=== PATIENT | male | born 1975 | race Caucasian/White ===

== ENCOUNTER 2016-06-14 21:29 | Emergency (ER) | payer MEDICAID ==
[~2016-06-14] VITALS: Ht 182.9 cm; Wt 78.0 kg
[2016-06-14 22:06] VITALS: Ht 182.9 cm; Wt 78.0 kg
[2016-06-15 00:43] LABS: ADD SCAN DIFF NO
[2016-06-15 00:48] LABS: BASOPHILS % 0.4 % (0.0-2.0); EOSINOPHILS # 0.1 10^3/ul (0.0-0.5); EOSINOPHILS % 1.6 % (0.0-7.0); HEMATOCRIT 33.2 % (42.0-52.0); HEMOGLOBIN 9.9 g/dl (14.0-18.0); LYMPHOCYTES # 1.4 10^3/ul (0.8-2.9); LYMPHOCYTES % 25.3 % (15.0-51.0); MEAN CORPUSCULAR HEMOGLOBIN 21.6 pg (29.0-33.0); MEAN CORPUSCULAR HGB CONC 29.8 g/dl (32.0-37.0); MEAN CORPUSCULAR VOLUME 72.5 fl (82.0-101.0); MEAN PLATELET VOLUME 8.8 fl (7.4-10.4); MONOCYTE # 0.3 10^3/ul (0.3-0.9); MONOCYTES % 5.7 % (0.0-11.0); NEUTROPHIL # 3.8 10^3/ul (1.6-7.5); NEUTROPHILS % 66.8 % (39.0-77.0); PLATELET COUNT 365 10^3/UL (140-415); RED BLOOD COUNT 4.58 10^6/ul (4.70-6.10); RED CELL DISTRIBUTION WIDTH 18.2 % (11.5-14.5); WHITE BLOOD COUNT 5.7 10^3/ul (4.8-10.8)
[2016-06-15 00:59] LABS: ADD UMIC NO; URINE BILIRUBIN (Dip) NEGATIVE (NEGATIVE); URINE BLOOD (Dip) NEGATIVE (NEGATIVE); URINE COLOR LT. YELLOW (YELLOW); URINE GLUCOSE (Dip) NEGATIVE (NEGATIVE); URINE KETONES (Dip) NEGATIVE (NEGATIVE); URINE LEUKOCYTE ESTERASE (Dip) NEGATIVE (NEGATIVE); URINE NITRITE (Dip) NEGATIVE (NEGATIVE); URINE TOTAL PROTEIN (Dip) NEGATIVE (NEGATIVE); URINE UROBILINOGEN (Dip) 0.2 E.U./dL (0.1-1.0)
[2016-06-15 01:12] LABS: ALBUMIN 4.6 g/dl (3.3-4.9); CHLORIDE 100 mmol/L (97-110)
[2016-06-15 01:13] LABS: SODIUM 139 mmol/L (135-144)
[2016-06-15 01:15] LABS: ALANINE AMINOTRANSFERASE 37 IU/L (13-69); ALBUMIN/GLOBULIN RATIO 1.06; ALKALINE PHOSPHATASE 84 IU/L (42-121); ANION GAP 18 (8-16); ASPARTATE AMINO TRANSFERASE 37 IU/L (15-46); BLOOD UREA NITROGEN 9 mg/dl (7-20); CARBON DIOXIDE 25 mmol/L (21-31); CREATININE 0.76 mg/dl (0.61-1.24); GLUCOSE 107 mg/dl (70-220); TOTAL PROTEIN 8.9 g/dl (6.1-8.1)
[2016-06-15 01:16] LABS: CALCIUM 9.4 mg/dl (8.4-10.2)
[2016-06-15 01:22] LABS: ACETAMINOPHEN < 10.0 ug/ml (10.0-30.0); ETHANOL < 10.0 mg/dl; SALICYLATE < 1.0 mg/dl (5.0-30.0)
[2016-06-15] MEDS ORDERED: DIPHENHYDRAMINE 50 MG CAP PO ONE ×3 (01:30→18:30)
--- NOTE | 2016-06-15 01:33 | PSY ---
Date/Time of Note Date/Time of Note DATE: 06/15/16 TIME: 01:32 Psychiatric Subjective Eval Consent Pt consented to telemedicine: Yes Subjective Evaluation Patient location: emergency Chief Complaint: "FEELS WORTHLESS AND WANTS TO KILL HIMSELF" MULTIPLE ARM WOUNDS NOTED Psychiatric Objective Eval Mental Status Examination: Laboratory Results Laboratory Tests Test 06/14/16 23:55 06/14/16 23:59 Urine Color LT. YELLOW Urine Clarity CLEAR Urine pH 5.5 Urine Specific [place] 1.020 Urine Ketones NEGATIVE Urine Nitrite NEGATIVE Urine Bilirubin NEGATIVE Urine Urobilinogen 0.2 E.U./dL Urine Leukocyte Esterase NEGATIVE Urine Hemoglobin NEGATIVE Urine Glucose NEGATIVE% Urine Total Protein NEGATIVE White Blood Count 5.710^3/ul Red Blood Count 4.5810^6/ul Hemoglobin 9.9g/dl Hematocrit 33.2% Mean Corpuscular Volume 72.5fl Mean Corpuscular Hemoglobin 21.6pg Mean Corpuscular Hemoglobin Concent 29.8g/dl Red Cell Distribution Width 18.2% Platelet Count 13929^3/UL Mean Platelet Volume 8.8fl Neutrophils % 66.8% Lymphocytes % 25.3% Monocytes % 5.7% Eosinophils % 1.6% Basophils % 0.4% Nucleated Red Blood Cells % 0.0/100WBC Neutrophils # 3.810^3/ul Lymphocytes # 1.410^3/ul Monocytes # 0.310^3/ul Eosinophils # 0.110^3/ul Basophils # 0.010^3/ul Nucleated Red Blood Cells # 0.010^3/ul Sodium Level 139mmol/L Potassium Level 4.0mmol/L Chloride Level 100mmol/L Carbon Dioxide Level 25mmol/L Anion Gap 18 Blood Urea Nitrogen 9mg/dl Creatinine 0.76mg/dl Glucose Level 107mg/dl Calcium Level 9.4mg/dl Total Bilirubin 0.0mg/dl Direct Bilirubin 0.00mg/dl Indirect Bilirubin 0.0mg/dl Aspartate Amino Transf (AST/SGOT) 37IU/L Alanine Aminotransferase (ALT/SGPT) 37IU/L Alkaline Phosphatase 84IU/L Total Protein 8.9g/dl Albumin 4.6g/dl Globulin 4.30g/dl Albumin/Globulin Ratio 1.06 Salicylates Level < 1.0mg/dl Acetaminophen Level < 10.0ug/ml Ethyl Alcohol Level < 10.0mg/dl Assessment Additional comments: IDENTIFYING INFORMATION: 40 year old Male patient who is currently at the hospital and for whom psychiatric consultation was requested. SOURCES OF INFORMATION: The patient who appears to be somewhat reliable and the medical records; the nursing staff. CHIEF COMPLAINT: "anxiety". HISTORY OF PRESENT ILLNESS: The patient was interviewed via telemedicine in the presence of and under the supervision of nursing staff of the hospital. The consent to conducting this interview via telemedicine was obtained by the nursing staff at the hospital. RN Umesh reports that the patient presented with SI with plan to jump in front of traffic. The patient reports that he is feeling worthless and was thinking of hurting himself. Admits to SI with plan to jump into traffic. Admits to feeling depressed appr 50% of the time, admits to anhedonia, anxiety, insomnia, fatigue. Admits to AH telling him that someone is going to take his freedom away and take him to [facility]. He reports that the voices are causing him to want to kill himself. Reports that hospital staff is out to get him and harm him and he does not feel safe at the hospital. Denies having low appetite. The patient denies using alcohol heavily or regularly. The patient reports using ecstasy occasionally. Last use was a few days ago. The patient denies using any other substances. In terms of past psychiatric history, the patient reports having a history of past psychiatric hospitalizations. The patient reports having a history of past suicide attempts by cutting his forearms. PAST MEDICAL HISTORY: seizures, anxiety, BPAD. CURRENT MEDICATIONS: keppra, wellbutrin. (used to take clonazepam in the past- last took it 3 weeks ago) ALLERGIES TO MEDICATIONS: NKDA. had side effects with the following medications: thorazine, haldol, depakote, zyprexa, seroquel, remeron. LABORATORY TESTS: UDS positive for amphetamines, benzodiazepines, alcohol was less than 17.6. CMP with AST of 154, ALT 313. Other labs including CBC, blood alcohol level are pending. SOCIAL HISTORY: homeless, single, no kids, unemployed; no access to firearms. REVIEW OF SYSTEMS: Constitutional (e.g., fever, weight loss): + headache; Eyes, Ears, Nose, Mouth, Throat: negative; Cardiovascular: negative; Respiratory: negative; Gastrointestinal: negative; Genitourinary: negative; Musculoskeletal: negative; Integumentary (skin and/or breast): negative; Neurological: negative; Psychiatric: as per HPI; Endocrine: negative; Hematologic/Lymphatic: negative; Allergic/Immunologic: negative. MENTAL STATUS EXAMINATION: General Appearance and Behavior: anxious, cooperative with the interview, pleasant with the current interviewer, makes poor eye contact, poorly groomed, no abnormal movements noted. Speech: Slow rate, regular rhythm, increased latency, low volume, somewhat slurred speech. Flow of thought: sequential, logical, goal-directed. Content of thought: positive for auditory hallucinations, no visual hallucinations, positive for paranoid delusions, positive for suicidal ideation; no homicidal ideation. Mood: "depressed". Affect: dysthymic, dysphoric, not reactive. Attention: normal based on the interview. Insight: fair. Judgment: poor. Memory: normal based on the interview. Sensorium: alert and oriented to person, June 14, 2016, [facility]. ASSESSMENT: The patient's presentation and history are consistent with the diagnosis of unspecified depressive disorder, stimulant use disorder, cannabis use disorder. The patient presents with depressive As well as psychotic symptoms in the context of stimulant use and partial medication compliance. [place] I: major depressive disorder with psychotic features. [place] II: Deferred. [place] III: see PMH. [place] IV: social stressors. [place] V: GAF: 10. PLAN: - Medication management: Would discontinue Wellbutrin for now as the patient's UDS was positive for stimulants and Wellbutrin can have a stimulating effect as well. Would recommend starting alcohol withdrawal protocol per [facility] because the patient's urine drug screen test was positive for benzodiazepines. The patient denies having taken any benzodiazepines lately, and reports that he was being prescribed clonazepam in recent past, stating that he last took it several weeks ago. Would start Abilify 9.75 mg IM PRN agitation [id number]; do not exceed 30 mg/24 hours Would start diphenhydramine 50 mg IM PRN severe agitation [id number]. Will defer to the inpatient psychiatry team for other medication changes. - Labs: No other laboratory tests are needed at this time. - Psychotherapy: Provided supportive psychotherapy and psychoeducation. - Disposition: Would recommend voluntary admission to the inpatient psychiatric unit as the patient would benefit from such an intervention so long as the patient has been cleared medically for admission to psychiatry. The patient is agreeable to being hospitalized in the inpatient psychiatric unit at this time. Would place on suicide precautions. The patient fulfills criteria for being placed on involuntary hold due to being a danger to self. Discussed about the above plan with Dr. Fitzpatrick. TANESHA MENDOSA MD Jun 15, 2016 01:33
[2016-06-15 01:43] LABS: BARBITURATES Negative (NEGATIVE); BENZODIAZEPINES Negative (NEGATIVE); CANNABINOIDS Negative (NEGATIVE); COCAINE Negative (NEGATIVE); OPIATES Negative (NEGATIVE)
[2016-06-15] MEDS ORDERED: LORAZEPAM 1 MG TAB PO ONE ×3 (03:00→19:30)
--- NOTE | 2016-06-15 03:07 | ERA ---
ER Documentation Chief Complaint Date/Time DATE: 06/15/16 TIME: 03:07 Chief Complaint "FEELS WORTHLESS AND WANTS TO KILL HIMSELF" MULTIPLE ARM WOUNDS NOTED HPI This is a 40-year-old male who says he feels worthless and was counseled. Patient has multiple arm abrasions noted. No other current complaints. ROS All systems reviewed and are negative except as per history of present illness. Allergies Allergies: Coded Allergies: olanzapine (Verified Allergy, Intermediate, SOB, 06/15/16) PMhx/Soc Medical and Surgical Hx: pt denies Medical Hx History of Surgery: No Anesthesia Reaction: No Hx Neurological Disorder: Yes (SEIZURE) Hx Respiratory Disorders: No Hx Cardiac Disorders: No Hx Psychiatric Problems: Yes (ANXIETY) Hx Miscellaneous Medical Probl: No Hx Alcohol Use: Yes Hx Substance Use: Yes (ECSTASY) Hx Tobacco Use: Yes Smoking Status: Current every day smoker Physical Exam Vitals Vital Signs Date Time Temp Pulse Resp B/P Pulse Ox O2 Delivery O2 Flow Rate FiO2 06/15/16 00:01 98.0 77 20 131/76 98 Room Air 06/14/16 22:06 97.5 97 20 119/78 98 Physical Exam Const: [] Head: Atraumatic Eyes: Normal Conjunctiva ENT: Normal External Ears, Nose and Mouth. Neck: Full range of motion..~ No meningismus. Resp: Clear to auscultation bilaterally Cardio: Regular rate and rhythm, no murmurs Abd: Soft, non tender, non distended. Normal bowel sounds Skin: No petechiae or rashes Back: No midline or flank tenderness Ext: No cyanosis, or edema Neur: Awake and alert Psych: Normal Mood and Affect Result Diagram: 06/14/16 2359 06/14/162358 Results 24 hrs Laboratory Tests Test 06/14/16 23:55 06/14/16 23:59 Urine Color LT. YELLOW Urine Clarity CLEAR Urine pH 5.5 Urine Specific [place] 1.020 Urine Ketones NEGATIVE Urine Nitrite NEGATIVE Urine Bilirubin NEGATIVE Urine Urobilinogen 0.2 E.U./dL Urine Leukocyte Esterase NEGATIVE Urine Hemoglobin NEGATIVE Urine Glucose NEGATIVE% Urine Total Protein NEGATIVE Urine Opiates Screen Negative Urine Barbiturates Negative Urine Amphetamines Screen POSITIVE Urine Benzodiazepines Screen Negative Urine Cocaine Screen Negative Urine Cannabinoids Negative White Blood Count 5.710^3/ul Red Blood Count 4.5810^6/ul Hemoglobin 9.9g/dl Hematocrit 33.2% Mean Corpuscular Volume 72.5fl Mean Corpuscular Hemoglobin 21.6pg Mean Corpuscular Hemoglobin Concent 29.8g/dl Red Cell Distribution Width 18.2% Platelet Count 18561^3/UL Mean Platelet Volume 8.8fl Neutrophils % 66.8% Lymphocytes % 25.3% Monocytes % 5.7% Eosinophils % 1.6% Basophils % 0.4% Nucleated Red Blood Cells % 0.0/100WBC Neutrophils # 3.810^3/ul Lymphocytes # 1.410^3/ul Monocytes # 0.310^3/ul Eosinophils # 0.110^3/ul Basophils # 0.010^3/ul Nucleated Red Blood Cells # 0.010^3/ul Sodium Level 139mmol/L Potassium Level 4.0mmol/L Chloride Level 100mmol/L Carbon Dioxide Level 25mmol/L Anion Gap 18 Blood Urea Nitrogen 9mg/dl Creatinine 0.76mg/dl Glucose Level 107mg/dl Calcium Level 9.4mg/dl Total Bilirubin 0.0mg/dl Direct Bilirubin 0.00mg/dl Indirect Bilirubin 0.0mg/dl Aspartate Amino Transf (AST/SGOT) 37IU/L Alanine Aminotransferase (ALT/SGPT) 37IU/L Alkaline Phosphatase 84IU/L Total Protein 8.9g/dl Albumin 4.6g/dl Globulin 4.30g/dl Albumin/Globulin Ratio 1.06 Salicylates Level < 1.0mg/dl Acetaminophen Level < 10.0ug/ml Ethyl Alcohol Level < 10.0mg/dl Current Medications Medications (Trade) Dose Ordered Sig/Vandana Route PRN Reason Start Time Stop Time Status Last Admin Dose Admin Diphenhydramine HCl (Benadryl) 50 mg ONCE ONCE PO 06/15/16 01:30 06/15/16 01:35 DC 06/15/16 01:38 Lorazepam (Ativan) 2 mg ONCE ONCE PO 06/15/16 03:00 06/15/16 03:01 DC 06/15/16 02:55 Procedures/MDM Patient's behavioral symptoms have stabilized while in the department. Patient is medically cleared and appropriate for psychiatric evaluation and work up. No e/o neurologic, toxic, infectious, or metabolic cause. Departure Diagnosis: Primary Impression: Suicidal ideation Condition: Stable MAIKOL GOODE Jun 15, 2016 03:07
[2016-06-15] MEDS ORDERED: IBUPROFEN 800 MG TAB PO ONE (10:00)
[2016-06-15] MEDS ORDERED: LEVE-5 PO (10:26)
[2016-06-15] MEDS ORDERED: BUPR300T48 PO (10:26)
[2016-06-15] MEDS ORDERED: GABA300C16 PO (10:27)
[2016-06-15] MEDS ORDERED: CLON-412 PO (10:27)
--- NOTE | 2016-06-15 11:54 | QN ---
Documentation Comment Observation Note: Time: 4 hours Family Hx: Negative for diabetes Evaluation: Multiple exams showed improving symptoms and no evidence of clinical decompensation. Patient is awaiting transfer to a psychiatric facility at this time. MIKE SILVERIO MD Jun 15, 2016 11:54
[2016-06-16 10:01] VITALS: TEMP 98.5
[2016-06-16] MEDS ORDERED: DIPHENHYDRAMINE 50 MG INJ ONE (12:21)
[2016-06-16] MEDS ORDERED: LORAZEPAM 2 MG INJ IM ONE (12:30)
--- NOTE | 2016-06-16 13:33 | QN ---
Documentation Comment This patient was reevaluated by tele-psych due to the fact that he was stating that he is not suicidal, not homicidal, and is denying any depression. Our tele -psych is reevaluated this patient indeed this patient is not a threat to himself. Advised patient he can return to the emergency room at any time if he feels that he is attached to himself or anyone else. The patient verbalized understanding will be discharged home at this time. OTIS GEIGER DO Jun 16, 2016 13:33
--- NOTE | 2016-06-16 13:35 | PSY ---
Date/Time of Note Date/Time of Note DATE: 06/16/16 TIME: 12:30 Psychiatric Subjective Eval Subjective Evaluation Patient location: emergency Chief Complaint: "FEELS WORTHLESS AND WANTS TO KILL HIMSELF" MULTIPLE ARM WOUNDS NOTED Reason for consult: Suicide risk assessment History of present illness This is a 40 year old male who presented to the ED with complaints of feeling worthless and was suicidal. While waiting for a psychiatric bed, the patient's mood has improved, and currently denies any suicidal ideation, intent or plan. He states that he has a history of bipolar disorder, and has had recurrent episodes of depression. He was recently prescribed Effexor, but has not filled the prescription. He denies hallucinations or delusions. He has a history of methamphetamine use, and has presented to the ED infrequently with complaints of suicidal ideation. His urine tox was positive for amphetamine. During his hospital stay he has been cooperative and demonstrated no signs of decompensation. Past psychiatric history He has been treated with clonazepam effexor. He has a history of poor adherence. Medical history Problems Medical Problems: (1) Suicidal ideation Status: Acute Allergies: Coded Allergies: olanzapine (Verified Allergy, Intermediate, SOB, 06/15/16) Substance Abuse Substance abuse history: Yes (He also smokes cigarettes. He smokes methamphetamine intermittently. ) Prior substance abuse treatmen: No Social History Marital status: single Level of education: 11th grade DPA/Conservatorship: No Occupation/Senior Living: disabled Psychiatric Objective Eval Review of Systems: Review of Systems: Applicable Constitutional: Normal Eyes: Normal ENT: Normal Neck: Normal Respiratory: Normal Chest/Breast: Normal Cardiovascular: Normal GI: Normal Genitourinary: Normal Skin: Normal Lymphatic: Normal Musculoskeletal: Normal Neurological: Normal Mental Status Examination: Appearance: Groomed Eye Contact: Good Psychomotor Activity: Normal Behavior: Friendly Speech: Clear AFFECT: Appropriate Mood: Appropriate/Full Though Process: Linear Thought Content: Normal Suicidal: No Homicidal: No On 72 hour hold: Yes Orientation: x4 Cognition: Alert Insight: Intact Judgement: Intact Laboratory Results Laboratory Tests Test 06/14/16 23:55 06/14/16 23:59 Urine Color LT. YELLOW Urine Clarity CLEAR Urine pH 5.5 Urine Specific [place] 1.020 Urine Ketones NEGATIVE Urine Nitrite NEGATIVE Urine Bilirubin NEGATIVE Urine Urobilinogen 0.2 E.U./dL Urine Leukocyte Esterase NEGATIVE Urine Hemoglobin NEGATIVE Urine Glucose NEGATIVE% Urine Total Protein NEGATIVE Urine Opiates Screen Negative Urine Barbiturates Negative Urine Amphetamines Screen POSITIVE Urine Benzodiazepines Screen Negative Urine Cocaine Screen Negative Urine Cannabinoids Negative White Blood Count 5.710^3/ul Red Blood Count 4.5810^6/ul Hemoglobin 9.9g/dl Hematocrit 33.2% Mean Corpuscular Volume 72.5fl Mean Corpuscular Hemoglobin 21.6pg Mean Corpuscular Hemoglobin Concent 29.8g/dl Red Cell Distribution Width 18.2% Platelet Count 54057^3/UL Mean Platelet Volume 8.8fl Neutrophils % 66.8% Lymphocytes % 25.3% Monocytes % 5.7% Eosinophils % 1.6% Basophils % 0.4% Nucleated Red Blood Cells % 0.0/100WBC Neutrophils # 3.810^3/ul Lymphocytes # 1.410^3/ul Monocytes # 0.310^3/ul Eosinophils # 0.110^3/ul Basophils # 0.010^3/ul Nucleated Red Blood Cells # 0.010^3/ul Sodium Level 139mmol/L Potassium Level 4.0mmol/L Chloride Level 100mmol/L Carbon Dioxide Level 25mmol/L Anion Gap 18 Blood Urea Nitrogen 9mg/dl Creatinine 0.76mg/dl Glucose Level 107mg/dl Calcium Level 9.4mg/dl Total Bilirubin 0.0mg/dl Direct Bilirubin 0.00mg/dl Indirect Bilirubin 0.0mg/dl Aspartate Amino Transf (AST/SGOT) 37IU/L Alanine Aminotransferase (ALT/SGPT) 37IU/L Alkaline Phosphatase 84IU/L Total Protein 8.9g/dl Albumin 4.6g/dl Globulin 4.30g/dl Albumin/Globulin Ratio 1.06 Salicylates Level < 1.0mg/dl Acetaminophen Level < 10.0ug/ml Ethyl Alcohol Level < 10.0mg/dl Assessment and Plan Assessment/Diagnosis [place] I: Bipolar disorder depressed Stimulant use disorder [place] II: no diagnosis [place] III: Seizure disorder, Eczema [place] V: 60 Recommendation/Plan Medication Management Continue medications as prescribed. Psychotherapy Suggest abstaining from methamphetamine. Currently denies suicidal ideation. Discharge to self. 5150 Recommendation: Release ALMA Donis MD Jun 16, 2016 13:35
[2016-06-16 13:59] VITALS: BP 128/65; PULSE 77; RESP 18
== END 2016-06-16 13:59 ==
LOC: E/R 21:29
DX: S61.401A Unspecified open wound of right hand, initial encounter (principal); F17.210 Nicotine dependence, cigarettes, uncomplicated; S61.402A Unspecified open wound of left hand, initial encounter; R45.851 Suicidal ideations; X78.9XXA Intentional self-harm by unspecified sharp object, initial encounter
CPT/HCPCS: 80053; 80306; 80307; 81003; 85025; J1200; J2060; Z7610; 36415; 96372

== ENCOUNTER 2016-07-28 02:10 | Emergency (ER) | payer MEDICAID ==
[~2016-07-28] VITALS: Ht 182.9 cm; Wt 78.0 kg
[~2016-07-28 02:10] MED LIST: BUPR300T48 PO; CLON-412 PO; GABA300C16 PO; LEVE-5 PO
[2016-07-28 02:19] VITALS: Ht 182.9 cm; Wt 78.0 kg
--- NOTE | 2016-07-28 02:58 | ERA ---
ER Documentation Chief Complaint Date/Time DATE: 07/28/16 TIME: 02:57 Chief Complaint pt scratched both arms using fingernails wanting to harm himself, suicidal HPI Is a 41-year-old male who says is suicidal and wants to harm himself. Discussed both of his arms using fingernails. He denies any auditory or visual hallucinations. Denies any other current complaints. ROS All systems reviewed and are negative except as per history of present illness. Medications Home Meds Reported Medications Gabapentin* (Gabapentin*) 300 Mg Capsule, 300 MG PO BID, #60 CAP 06/15/16 Clonazepam* (Klonopin*) 1 Mg Tablet, 1 MG PO DAILY Y for ANXIETY, TAB 06/15/16 Levetiracetam* (Keppra*) 500 Mg Tablet, 500 MG PO BID, TAB 06/15/16 Bupropion Hcl* (Wellbutrin XL*) 300 Mg Tab.sr.24h, 300 MG PO DAILY, TAB.SA 06/15/16 Allergies Allergies: Coded Allergies: olanzapine (Verified Allergy, Intermediate, SOB, 06/15/16) PMhx/Soc History of Surgery: No Anesthesia Reaction: No Hx Neurological Disorder: Yes (SEIZURE) Hx Respiratory Disorders: No Hx Cardiac Disorders: No Hx Psychiatric Problems: Yes (ANXIETY) Hx Miscellaneous Medical Probl: No Hx Alcohol Use: Yes Hx Substance Use: Yes (ECSTASY) Hx Tobacco Use: Yes Physical Exam Vitals Vital Signs Date Time Temp Pulse Resp B/P Pulse Ox O2 Delivery O2 Flow Rate FiO2 07/28/16 02:19 97.3 88 20 120/90 98 Physical Exam Const: [] Head: Atraumatic Eyes: Normal Conjunctiva ENT: Normal External Ears, Nose and Mouth. Neck: Full range of motion..~ No meningismus. Resp: Clear to auscultation bilaterally Cardio: Regular rate and rhythm, no murmurs Abd: Soft, non tender, non distended. Normal bowel sounds Skin: No petechiae or rashes Back: No midline or flank tenderness Ext: No cyanosis, or edema Neur: Awake and alert Psych: Normal Mood and Affect Procedures/MDM Patient's behavioral symptoms have stabilized while in the department. Patient is medically cleared and appropriate for psychiatric evaluation and work up. No e/o neurologic, toxic, infectious, or metabolic cause. Departure Diagnosis: Primary Impression: Suicide threat or attempt Condition: MAIKOL Hidalgo July 28, 2016 02:58
[2016-07-28 03:18] LABS: ADD SCAN DIFF NO
[2016-07-28 03:28] LABS: ADD UMIC NO; URINE BILIRUBIN (Dip) NEGATIVE (NEGATIVE); URINE BLOOD (Dip) NEGATIVE (NEGATIVE); URINE COLOR LT. YELLOW (YELLOW); URINE GLUCOSE (Dip) NEGATIVE (NEGATIVE); URINE KETONES (Dip) NEGATIVE (NEGATIVE); URINE LEUKOCYTE ESTERASE (Dip) NEGATIVE (NEGATIVE); URINE NITRITE (Dip) NEGATIVE (NEGATIVE); URINE TOTAL PROTEIN (Dip) NEGATIVE (NEGATIVE); URINE UROBILINOGEN (Dip) 0.2 E.U./dL (0.1-1.0)
[2016-07-28] MEDS ORDERED: LORAZEPAM 1 MG TAB PO ONE (03:30)
[2016-07-28 03:36] LABS: ALBUMIN 3.9 g/dl (3.3-4.9); CHLORIDE 103 mmol/L (97-110)
[2016-07-28] MEDS ORDERED: DIPHENHYDRAMINE 50 MG INJ ONE (03:36)
[2016-07-28] MEDS ORDERED: LORAZEPAM 2 MG INJ ONE (03:36)
[2016-07-28 03:37] LABS: POTASSIUM 3.6 mmol/L (3.5-5.1); SODIUM 141 mmol/L (135-144)
[2016-07-28 03:39] LABS: ALANINE AMINOTRANSFERASE 50 IU/L (13-69); ALBUMIN/GLOBULIN RATIO 1.02; ALKALINE PHOSPHATASE 74 IU/L (42-121); ANION GAP 18 (8-16); ASPARTATE AMINO TRANSFERASE 39 IU/L (15-46); BLOOD UREA NITROGEN 11 mg/dl (7-20); CARBON DIOXIDE 24 mmol/L (21-31); CREATININE 0.71 mg/dl (0.61-1.24); GLUCOSE 90 mg/dl (70-220); TOTAL PROTEIN 7.7 g/dl (6.1-8.1)
[2016-07-28 03:40] LABS: ACETAMINOPHEN < 10.0 ug/ml (10.0-30.0); BASOPHILS % 0.1 % (0.0-2.0); CALCIUM 8.9 mg/dl (8.4-10.2); EOSINOPHILS # 0.2 10^3/ul (0.0-0.5); EOSINOPHILS % 3.4 % (0.0-7.0); ETHANOL < 10.0 mg/dl; HEMATOCRIT 31.7 % (42.0-52.0); HEMOGLOBIN 9.4 g/dl (14.0-18.0); LYMPHOCYTES # 2.4 10^3/ul (0.8-2.9); LYMPHOCYTES % 34.3 % (15.0-51.0); MEAN CORPUSCULAR HEMOGLOBIN 21.8 pg (29.0-33.0); MEAN CORPUSCULAR HGB CONC 29.7 g/dl (32.0-37.0); MEAN CORPUSCULAR VOLUME 73.4 fl (82.0-101.0); MEAN PLATELET VOLUME 10.6 fl (7.4-10.4); MONOCYTE # 0.5 10^3/ul (0.3-0.9); MONOCYTES % 7.7 % (0.0-11.0); NEUTROPHIL # 3.8 10^3/ul (1.6-7.5); NEUTROPHILS % 54.2 % (39.0-77.0); PLATELET COUNT 234 10^3/UL (140-415); RED BLOOD COUNT 4.32 10^6/ul (4.70-6.10); RED CELL DISTRIBUTION WIDTH 18.7 % (11.5-14.5); SALICYLATE < 1.0 mg/dl (5.0-30.0)
[2016-07-28 03:55] LABS: BARBITURATES NEGATIVE (NEGATIVE); CANNABINOIDS NEGATIVE (NEGATIVE); COCAINE NEGATIVE (NEGATIVE); OPIATES NEGATIVE (NEGATIVE)
[2016-07-28 03:57] LABS: BENZODIAZEPINES NEGATIVE (NEGATIVE)
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
[2016-07-28] MEDS ORDERED: LORAZEPAM 2 MG INJ IM ONE ×3 (05:30→18:30)
[2016-07-28] MEDS ORDERED: DIPHENHYDRAMINE 50 MG INJ IM ONE ×2 (05:30→18:30)
[2016-07-28] MEDS ORDERED: HALOPERIDOL 5 MG TAB PO ONE (06:30)
[2016-07-28] MEDS ORDERED: DIPHENHYDRAMINE 50 MG CAP PO ONE (12:00)
[2016-07-28] MEDS ORDERED: HALOPERIDOL 5 MG INJ IM ONE (18:00)
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
[2016-07-29] MEDS ORDERED: ACETAMINOPHEN 325 MG TAB ONE (10:51)
[2016-07-29] MEDS ORDERED: ACETAMINOPHEN 325 MG TAB PO ONE (11:00)
[2016-07-29 12:04] VITALS: BP 116/67; PULSE 72; RESP 18; TEMP 97.5
--- NOTE | 2016-07-29 13:16 | EN ---
Date/Time of Note Date/Time of Note DATE: 07/29/16 TIME: 13:14 ER Progress Note HPI: 41-year-old man placed on a 5150 psychiatric hold awaiting transfer to an accepting U facility. Past medical history: Psychiatric illness and drug abuse Physical exam: GENERAL: Well-developed, agitated HEENT: Moist mucous membranes, pink conjunctiva, no cervical spine tenderness or step-off deformities, no goiter, no jaundice or icterus, extraocular movements intact without pain. No submandibular induration, and no pharyngeal erythema NEURO: Alert and oriented 3, cranial nerves II through XII intact bilaterally, pupils equal round reactive to light, no focal deficits or facial asymmetry, sensation intact distally Strength 5/5 in upper and lower extremities bilaterally CARDIAC: Regular rate and rhythm, no murmurs rubs or gallops LUNGS: Clear bilaterally no wheezing crackles or stridor ABDOMEN: Soft nontender, no guarding, no rigidity, no rebound, no psoas sign no obturator sign. Normoactive bowel sounds SKIN: Warm and dry to touch, no abrasions, contusions, or hematomas, no lacerations, no ecchymosis, no target lesions, and without ulcers EXTREMITIES: No clubbing cyanosis or edema, calves are bilaterally symmetrical, no Homans sign, no popliteal cord sign. Distal pulses equal and bilateral PSYCH: Agitated Medical decision making: Patient ate breakfast this morning and later complaints of pain, I did administer acetaminophen 650 mg p.o. psychiatric symptoms and agitation continued. Patient's behavioral symptoms have stabilized while in the department. Patient is medically cleared and appropriate for psychiatric evaluation and work up. No e/o neurologic, toxic, infectious, or metabolic cause. U facility accepted the patient and transport team was called and picked up the patient successfully. Diagnostic impression: #1) acute decompensated psychiatric illness with suicidal ideation 2) Psychosis GORDON WARE MD July 29, 2016 13:16
== END 2016-07-29 13:38 ==
LOC: E/R 02:10
DX: T14.91 Suicide attempt (principal); R40.2142 Coma scale, eyes open, spontaneous, at arrival to emergency department; R40.2252 Coma scale, best verbal response, oriented, at arrival to emergency department; R40.2362 Coma scale, best motor response, obeys commands, at arrival to emergency department; Z87.891 Personal history of nicotine dependence
CPT/HCPCS: 36415; 80053; 80306; 80307; 81003; 85025; 96372; J1200; J1630; J2060; Z7502; Z7610

== ENCOUNTER 2016-09-23 01:51 | Emergency (ER) | payer MEDICAID, OTHER ==
[~2016-09-23] VITALS: Ht 182.9 cm; Wt 78.0 kg
[~2016-09-23 01:51] MED LIST changes: -GABA300C16 PO
[2016-09-23 01:55] VITALS: Ht 182.9 cm; Wt 78.0 kg
[2016-09-23] MEDS ORDERED: HALOPERIDOL 5 MG INJ IM ONE (03:00)
--- NOTE | 2016-09-23 03:04 | RADRPT ---
PROCEDURE: Noncontrast CT Head. CLINICAL INDICATION: Trauma. TECHNIQUE: Noncontrast CT of the head was obtained. The administered radiation dose was CTDI vol = 45 mGy, DLP = 810 mGy-cm. COMPARISON: No pertinent prior examinations were submitted for comparison. FINDINGS: The ventricles and sulci are within normal limits. There is no acute intracranial hemorrhage or ext ra-axial fluid collection. There is no mass effect. No midline shift is identified. There is no loss of beatty-white differentiation to suggest acute infarction. The orbits are within normal limits. The paranasal sinuses and mastoid air cells are without fluid. No destructive osseous lesion is identified. IMPRESSION: No acute findings. RPTAT: HIKT .Kendall Vazquez MD, MD Date Time Electronically viewed and signed by .Kendall Vazquez MD, on 09/23/2016 03:03 .T/
[2016-09-23 03:14] LABS: ADD SCAN DIFF NO
[2016-09-23 03:15] LABS: BASOPHILS % 0.1 % (0.0-2.0); EOSINOPHILS # 0.2 10^3/ul (0.0-0.5); EOSINOPHILS % 2.2 % (0.0-7.0); HEMATOCRIT 32.3 % (42.0-52.0); HEMOGLOBIN 9.7 g/dl (14.0-18.0); LYMPHOCYTES % 28.4 % (15.0-51.0); MEAN CORPUSCULAR VOLUME 73.2 fl (82.0-101.0); MEAN PLATELET VOLUME 11.1 fl (7.4-10.4); MONOCYTE # 0.7 10^3/ul (0.3-0.9); MONOCYTES % 9.4 % (0.0-11.0); NEUTROPHIL # 4.1 10^3/ul (1.6-7.5); NEUTROPHILS % 59.6 % (39.0-77.0); PLATELET COUNT 329 10^3/UL (140-415); RED BLOOD COUNT 4.41 10^6/ul (4.70-6.10); RED CELL DISTRIBUTION WIDTH 17.9 % (11.5-14.5); WHITE BLOOD COUNT 6.9 10^3/ul (4.8-10.8)
[2016-09-23 03:27] LABS: ADD UMIC NO; UR ASCORBIC ACID NEGATIVE (NEGATIVE); UR BILIRUBIN (Dip) NEGATIVE (NEGATIVE); UR BLOOD (Dip) NEGATIVE (NEGATIVE); UR CLARITY CLEAR (CLEAR); UR COLOR YELLOW (YELLOW); UR GLUCOSE (Dip) NEGATIVE (NEGATIVE); UR KETONES (Dip) NEGATIVE (NEGATIVE); UR LEUKOCYTE ESTERASE (Dip) NEGATIVE Leu/ul (NEGATIVE); UR NITRITE (Dip) NEGATIVE (NEGATIVE); UR SPECIFIC GRAVITY (Dip) 1.023 (1.003-1.030); UR TOTAL PROTEIN (Dip) NEGATIVE (NEGATIVE); UR UROBILINOGEN (Dip) NEGATIVE (NEGATIVE)
[2016-09-23 03:40] LABS: ALANINE AMINOTRANSFERASE 67 IU/L (13-69); ALBUMIN 4.9 g/dl (3.3-4.9); ALBUMIN/GLOBULIN RATIO 1.22; ALKALINE PHOSPHATASE 78 IU/L (42-121); ANION GAP 13 (8-16); ASPARTATE AMINO TRANSFERASE 100 IU/L (15-46); BILIRUBIN,INDIRECT 0.1 mg/dl (0-1.1); BILIRUBIN,TOTAL 0.1 mg/dl (0.2-1.3); BLOOD UREA NITROGEN 15 mg/dl (7-20); CALCIUM 9.4 mg/dl (8.4-10.2); CARBON DIOXIDE 28 mmol/L (21-31); CHLORIDE 101 mmol/L (97-110); CREATININE 0.71 mg/dl (0.61-1.24); GLUCOSE 90 mg/dl (70-220); POTASSIUM 4.8 mmol/L (3.5-5.1); SODIUM 137 mmol/L (135-144); TOTAL PROTEIN 8.9 g/dl (6.1-8.1)
[2016-09-23 03:49] LABS: BENZODIAZEPINES Negative (NEGATIVE)
[2016-09-23 04:00] LABS: ACETAMINOPHEN < 10.0 ug/ml (10.0-30.0); SALICYLATE < 1.0 mg/dl (5.0-30.0)
[2016-09-23 04:01] LABS: BARBITURATES Negative (NEGATIVE); CANNABINOIDS Negative (NEGATIVE); COCAINE Negative (NEGATIVE); ETHANOL < 10.0 mg/dl; OPIATES Negative (NEGATIVE)
--- NOTE | 2016-10-15 19:32 | ERD ---
ER Documentation Chief Complaint Date/Time DATE: 10/15/16 TIME: 19:25 Chief Complaint SI. Took 10 tabs of Wellbutrin ER 300mg each @ 2029. HPI This 39 year old male came to the ER saying that he took 10 wellbutrin pills of 300 mg in order to harm himself. He denies having any physical symptoms yet. He took the pills at about 2230. He agrees to psychiatric evaluation, monitoring and lab work. ROS All systems reviewed and are negative except as per history of present illness. Medications Home Meds Reported Medications Clonazepam* (Klonopin*) 1 Mg Tablet, 1 MG PO DAILY Y for ANXIETY, TAB 06/15/16 Levetiracetam* (Keppra*) 500 Mg Tablet, 500 MG PO BID, TAB 06/15/16 Bupropion Hcl* (Wellbutrin XL*) 300 Mg Tab.sr.24h, 300 MG PO DAILY, TAB.SA 06/15/16 Allergies Allergies: Coded Allergies: olanzapine (Unverified Allergy, Intermediate, SOB, 07/28/16) PMhx/Soc Medical and Surgical Hx: pt denies Surgical Hx History of Surgery: No Anesthesia Reaction: No Hx Neurological Disorder: Yes (SEIZURE) Hx Respiratory Disorders: No Hx Cardiac Disorders: No Hx Psychiatric Problems: Yes (ANXIETY) Hx Miscellaneous Medical Probl: No Hx Alcohol Use: Yes Hx Substance Use: Yes (ECSTASY, meth) Hx Tobacco Use: Yes Smoking Status: Current every day smoker Physical Exam Physical Exam Const: [] No distress Head: Atraumatic Eyes: Normal Conjunctiva, EOMI ENT: Normal External Ears, Nose and Mouth. Neck: Full range of motion..~ No meningismus. Resp: Clear to auscultation bilaterally Cardio: Regular rate and rhythm, no murmurs Abd: Soft, non tender, non distended. Normal bowel sounds Skin: No petechiae or rashes Ext: No cyanosis, or edema Neur: Awake and alert and orient x 3, no focal deficits. Psych: Mild agitation Results 24 hrs Laboratory Tests Test 09/23/16 02:35 White Blood Count 6.910^3/ul Red Blood Count 4.4110^6/ul Hemoglobin 9.7g/dl Hematocrit 32.3% Mean Corpuscular Volume 73.2fl Mean Corpuscular Hemoglobin 22.0pg Mean Corpuscular Hemoglobin Concent 30.0g/dl Red Cell Distribution Width 17.9% Platelet Count 61008^3/UL Mean Platelet Volume 11.1fl Neutrophils % 59.6% Lymphocytes % 28.4% Monocytes % 9.4% Eosinophils % 2.2% Basophils % 0.1% Nucleated Red Blood Cells % 0.0/100WBC Neutrophils # 4.110^3/ul Lymphocytes # 2.010^3/ul Monocytes # 0.710^3/ul Eosinophils # 0.210^3/ul Basophils # 0.010^3/ul Nucleated Red Blood Cells # 0.010^3/ul Urine Color YELLOW Urine Clarity CLEAR Urine pH 7.0 Urine Specific [place]pot 1.023 Urine Ketones NEGATIVEmg/dL Urine Nitrite NEGATIVEmg/dL Urine Bilirubin NEGATIVEmg/dL Urine Urobilinogen NEGATIVEmg/dL Urine Leukocyte Esterase NEGATIVELeu/ul Urine Hemoglobin NEGATIVEmg/dL Urine Glucose NEGATIVEmg/dL Urine Total Protein NEGATIVEmg/dl Sodium Level 137mmol/L Potassium Level 4.8mmol/L Chloride Level 101mmol/L Carbon Dioxide Level 28mmol/L Anion Gap 13 Blood Urea Nitrogen 15mg/dl Creatinine 0.71mg/dl Glucose Level 90mg/dl Calcium Level 9.4mg/dl Total Bilirubin 0.1mg/dl Direct Bilirubin 0.00mg/dl Indirect Bilirubin 0.1mg/dl Aspartate Amino Transf (AST/SGOT) 100IU/L Alanine Aminotransferase (ALT/SGPT) 67IU/L Alkaline Phosphatase 78IU/L Total Protein 8.9g/dl Albumin 4.9g/dl Globulin 4.00g/dl Albumin/Globulin Ratio 1.22 Salicylates Level < 1.0mg/dl Urine Opiates Screen Negative Acetaminophen Level < 10.0ug/ml Urine Barbiturates Negative Urine Amphetamines Screen Positive Urine Benzodiazepines Screen Negative Urine Cocaine Screen Negative Urine Cannabinoids Negative Ethyl Alcohol Level < 10.0mg/dl Current Medications Medications (Trade) Dose Ordered Sig/Vandana Route PRN Reason Start Time Stop Time Status Last Admin Dose Admin Haloperidol (Haldol) 5 mg ONCE ONCE IM 09/23/16 03:00 09/23/16 03:01 DC 09/23/16 02:55 Procedures/MDM Claimed suicide attempt in patient who eventually escaped from ER. Workup was underway. Patient became agitated then calm. Haldol was ordered for sedation. Was informed that patient darted out and security was unable to find him. Departure Diagnosis: Primary Impression: Patient left before treatment completed Additional Impression: Suicide threat or attempt Condition: STEFANIA Salamanca DO Oct 15, 2016 19:32
== END 2016-09-23 03:35 | disposition left against medical advice (07) ==
LOC: E/R 01:51
DX: T43.292A Poisoning by other antidepressants, intentional self-harm, initial encounter (principal); F17.210 Nicotine dependence, cigarettes, uncomplicated; R56.9 Unspecified convulsions
CPT/HCPCS: 36415; 70450; 80053; 80306; 80307; 81003; 85025; 96372; J1630; Z7502

== ENCOUNTER 2017-08-04 09:46 | Emergency (ER) | END 2017-08-05 07:31 ==

== ENCOUNTER 2018-06-22 05:15 | Emergency (ER) | payer MEDICAID, OTHER ==
[~2018-06-22] VITALS: Ht 182.9 cm; Wt 74.8 kg
[~2018-06-22 05:15] MED LIST changes: -CLON-412 PO; +CLON2TAB12 PO; +VENL25TA PO
[2018-06-22 05:23] VITALS: Ht 182.9 cm; Wt 74.8 kg
[2018-06-22] MEDS ORDERED: DIPHENHYDRAMINE 50 MG CAP PO ONE (06:30)
[2018-06-22] MEDS ORDERED: LORAZEPAM 1 MG TAB PO ONE (06:30)
--- NOTE | 2018-06-22 07:10 | ERD ---
ER Documentation Chief Complaint Chief Complaint states hearing voices and suicidal ideations HPI This is a 41-year-old male with a past medical history of schizophrenia. The patient presents to the emergency department stating he is hearing voices that are telling him to kill himself. He states he wants to jump in front of tra ffic. He also indicates he is been seen at [facility] several days ago for similar symptoms and had been subsequently discharged. Indicates he does not feel safe. He states he utilizes illicit drugs and used bath salts a day ago. He also has been cutting himself with his fingernails on his upper extremities as he indicates when he cuts his skin he feels a small amount of relief from his feeling of wanting to . ROS All systems reviewed and are negative except as per history of present illness. Medications Home Meds Reported Medications Clonazepam* (Clonazepam*) 2 Mg Tablet, 2 MG PO BID PRN for ANXIETY, TAB 08/04/17 Levetiracetam* (Keppra*) 500 Mg Tablet, 500 MG PO BID, TAB 06/15/16 Bupropion Hcl* (Wellbutrin XL*) 300 Mg Tab.sr.24h, 300 MG PO DAILY, TAB.SA 06/15/16 Venlafaxine Hcl* (Effexor*) 25 Mg Tablet, 50 MG PO BID, TAB 10/19/13 Allergies Allergies: Coded Allergies: divalproex sodium (Verified Allergy, Intermediate, 08/05/17) olanzapine (Unverified Allergy, Intermediate, SOB, 07/28/16) quetiapine (Verified Allergy, Intermediate, 08/05/17) quetiapine fumarate (Verified Allergy, Mild, DIZZY, 08/05/17) PMhx/Soc Medical and Surgical Hx: pt denies Surgical Hx History of Surgery: No Anesthesia Reaction: No Hx Neurological Disorder: Yes (Seizures) Hx Respiratory Disorders: No Hx Cardiac Disorders: No Hx Psychiatric Problems: Yes (Anxiety, depression, psychosis) Hx Miscellaneous Medical Probl: No (BIPOLAR,SCHIZOPHRENIA) Hx Alcohol Use: Yes Hx Substance Use: Yes Hx Tobacco Use: Yes Smoking Status: Current every day smoker Physical Exam Vitals Vital Signs Date Temp Pulse Resp B/P (MAP) Pulse Ox O2 O2 Flow FiO2 Time Delivery Rate 06/22/18 97.2 71 18 127/83 100 05:23 (98) Physical Exam Constitutional:Well-developed. Well-nourished. HEENT:Normocephalic. Atraumatic.Pupils were equal round reactive to light. Moist mucous membranes.No tonsillar exudates. Neck: No nuchal rigidity. No lymphadenopathy. No posterior cervical spine tenderness or step-offs. Respiratory: Not using accessory muscles of respiration.Lungs were clear to auscultation bilaterally. No rhonchi. No rales. No wheezing. Cardiovascular: Regular rate regular rhythm.No murmurs. No rubs were appreciated.S1, S2 normal. Distal pulses are palpable 2+ bilaterally. GI: Abdomen was soft. Nontender. Non Distended. No pulsatile abdominal masses or bruits. No rebound. No guarding. Bowel sounds were present and normal. Muscle skeletal: Full range of motion of both the upper and lower extremities bilaterally.Normal muscle tone.No assymetrical calf tenderness or swelling. Skin: No petechia, no purpura. No lesions on the palms or the soles of the feet. No maculopapular rash. Keloids present on the bilateral upper forearms from previous cutting with superficial abrasion over the right flexor surface of the forearm. NEURO: Patient was alert, awake, orientated x3.No facial droop. Gait observed and normal with no ataxia.Speech had regular rate and rhythm. No focal neurological deficits. PSYCH: Patient had suicidal thoughts and ideations. Auditory hallucinations. Result Diagram: 06/22/18 0623 06/22/18 0623 Results 24 hrs Laboratory Tests Test 06/22/18 05:55 06/22/18 06:23 Urine Color JEANETTE Urine Clarity SLIGHTLY CLOUDY Urine pH 5.0 Urine Specific Jackson 1.030 Urine Ketones TRACE mg/dL Urine Nitrite NEGATIVE mg/dL Urine Bilirubin NEGATIVE mg/dL Urine Urobilinogen NEGATIVE mg/dL Urine Leukocyte Esterase NEGATIVE Cecilia/ul Urine Microscopic RBC 1 /HPF Urine Microscopic WBC 0 /HPF Urine Calcium Oxalate Crystals MODERATE /HPF Urine Bacteria FEW /HPF Urine Mucus MODERATE /HPF Urine Hemoglobin 1+ mg/dL Urine Glucose NEGATIVE mg/dL Urine Total Protein NEGATIVE mg/dl Urine Opiates Screen Negative Urine Barbiturates Negative Urine Amphetamines Screen POSITIVE Urine Benzodiazepines Screen Negative Urine Cocaine Screen Negative Urine Cannabinoids Negative White Blood Count 6.5 10^3/ul Red Blood Count 5.15 10^6/ul Hemoglobin 10.6 g/dl Hematocrit 36.2 % Mean Corpuscular Volume 70.3 fl Mean Corpuscular Hemoglobin 20.6 pg Mean Corpuscular Hemoglobin Concent 29.3 g/dl Red Cell Distribution Width 20.5 % Platelet Count 383 10^3/UL Mean Platelet Volume 8.9 fl Immature Granulocytes % 0.200 % Neutrophils % 70.3 % Lymphocytes % 20.3 % Monocytes % 7.5 % Eosinophils % 1.4 % Basophils % 0.3 % Nucleated Red Blood Cells % 0.0 /100WBC Immature Granulocytes # 0.010 10^3/ul Neutrophils # 4.6 10^3/ul Lymphocytes # 1.3 10^3/ul Monocytes # 0.5 10^3/ul Eosinophils # 0.1 10^3/ul Basophils # 0.0 10^3/ul Nucleated Red Blood Cells # 0.0 10^3/ul Sodium Level 142 mmol/L Potassium Level 3.8 mmol/L Chloride Level 106 mmol/L Carbon Dioxide Level 24 mmol/L Anion Gap 12 Blood Urea Nitrogen 14 mg/dl Creatinine 0.71 mg/dl Est Glomerular Filtrat Rate mL/min > 60 mL/min Glucose Level 95 mg/dl Calcium Level 9.8 mg/dl Total Bilirubin 0.4 mg/dl Direct Bilirubin 0.00 mg/dl Indirect Bilirubin 0.4 mg/dl Aspartate Amino Transf (AST/SGOT) 61 IU/L Alanine Aminotransferase (ALT/SGPT) 68 IU/L Alkaline Phosphatase 98 IU/L Total Protein 8.9 g/dl Albumin 4.7 g/dl Globulin 4.20 g/dl Albumin/Globulin Ratio 1.11 Salicylates Level < 1.0 mg/dl Acetaminophen Level < 10.0 ug/ml Ethyl Alcohol Level < 10.0 mg/dl Current Medications Medications Dose Sig/Vandana Start Time Status Last (Trade) Ordered Route PRN Stop Time Admin Dose Reason Admin Lorazepam 1 mg ONCE ONCE 06/22/18 DC 06/22/18 (Ativan) PO 06:30 06:31 06/22/18 06:31 50 mg ONCE ONCE 06/22/18 DC 06/22/18 Diphenhydrami PO 06:30 06:31 ne HCl 06/22/18 06:31 (Benadryl) Procedures/MDM The patient presented to the emergency department with an active suicidal ideation. My differential diagnosis included but was not limited to major depressive disorder, normal despondency, bipolar disorder, schizophrenia, anxiety disorder, borderline personality disorder, antisocial personality disorder, organic mental disorder, bereavement or alcohol or drug abuse. Ancillary lab work was obtained including blood alcohol level, drug screen and serum toxicology panel. The patient was provided a safe environment while in the emergency department with appropriate supervision. The patient will be seen and evaluated by the tele-psychiatrist. The patient was placed on a hold. Departure Diagnosis: Primary Impression: Suicidal ideation Condition: Serious ISABELLE WESTBROOK MD Jun 22, 2018 06:53
--- NOTE | 2018-06-22 07:33 | PSY ---
Date/Time of Note Date/Time of Note DATE: 06/22/18 TIME: 07:29 Psychiatric Subjective Eval Consent Pt consented to telemedicine: Yes Subjective Evaluation Patient location: emergency Chief Complaint: states hearing voices and suicidal ideations Medical history Problems Medical Problems: (1) Acute psychosis Status: Acute (2) Auditory hallucinations Status: Acute (3) Deliberate self-cutting Status: Acute (4) Depression with suicidal ideation Status: Acute (5) Hypokalemia Status: Acute (6) Methamphetamine abuse Status: Acute (7) Methamphetamine abuse Status: Acute (8) Microcytic anemia Status: Acute (9) Patient left before treatment completed Status: Acute (10) Patient left before treatment completed Status: Acute (11) Patient left without being seen Status: Acute (12) Suicidal ideation Status: Acute (13) Suicidal ideation Status: Acute (14) Suicidal ideation Status: Acute (15) Suicidal ideation Status: Acute (16) Suicidal ideations Status: Acute (17) Suicide threat or attempt Status: Acute (18) Suicide threat or attempt Status: Acute (19) Thrombocytosis Status: Acute (20) Transaminitis Status: Acute Allergies: Coded Allergies: divalproex sodium (Verified Allergy, Intermediate, 08/05/17) olanzapine (Unverified Allergy, Intermediate, SOB, 07/28/16) quetiapine (Verified Allergy, Intermediate, 08/05/17) quetiapine fumarate (Verified Allergy, Mild, DIZZY, 08/05/17) Psychiatric Objective Eval Mental Status Examination: Laboratory Results Laboratory Tests Test 06/22/18 05:55 06/22/18 06:23 Urine Color JEANETTE Urine Clarity SLIGHTLY CLOUDY Urine pH 5.0 Urine Specific [place] 1.030 Urine Ketones TRACE mg/dL Urine Nitrite NEGATIVE mg/dL Urine Bilirubin NEGATIVE mg/dL Urine Urobilinogen NEGATIVE mg/dL Urine Leukocyte Esterase NEGATIVE Cecilia/ul Urine Microscopic RBC 1 /HPF Urine Microscopic WBC 0 /HPF Urine Calcium Oxalate Crystals MODERATE /HPF Urine Bacteria FEW /HPF Urine Mucus MODERATE /HPF Urine Hemoglobin 1+ mg/dL Urine Glucose NEGATIVE mg/dL Urine Total Protein NEGATIVE mg/dl Urine Opiates Screen Negative Urine Barbiturates Negative Urine Amphetamines Screen POSITIVE Urine Benzodiazepines Screen Negative Urine Cocaine Screen Negative Urine Cannabinoids Negative White Blood Count 6.5 10^3/ul Red Blood Count 5.15 10^6/ul Hemoglobin 10.6 g/dl Hematocrit 36.2 % Mean Corpuscular Volume 70.3 fl Mean Corpuscular Hemoglobin 20.6 pg Mean Corpuscular Hemoglobin Concent 29.3 g/dl Red Cell Distribution Width 20.5 % Platelet Count 383 10^3/UL Mean Platelet Volume 8.9 fl Immature Granulocytes % 0.200 % Neutrophils % 70.3 % Lymphocytes % 20.3 % Monocytes % 7.5 % Eosinophils % 1.4 % Basophils % 0.3 % Nucleated Red Blood Cells % 0.0 /100WBC Immature Granulocytes # 0.010 10^3/ul Neutrophils # 4.6 10^3/ul Lymphocytes # 1.3 10^3/ul Monocytes # 0.5 10^3/ul Eosinophils # 0.1 10^3/ul Basophils # 0.0 10^3/ul Nucleated Red Blood Cells # 0.0 10^3/ul Sodium Level 142 mmol/L Potassium Level 3.8 mmol/L Chloride Level 106 mmol/L Carbon Dioxide Level 24 mmol/L Anion Gap 12 Blood Urea Nitrogen 14 mg/dl Creatinine 0.71 mg/dl Est Glomerular Filtrat Rate mL/min > 60 mL/min Glucose Level 95 mg/dl Calcium Level 9.8 mg/dl Total Bilirubin 0.4 mg/dl Direct Bilirubin 0.00 mg/dl Indirect Bilirubin 0.4 mg/dl Aspartate Amino Transf (AST/SGOT) 61 IU/L Alanine Aminotransferase (ALT/SGPT) 68 IU/L Alkaline Phosphatase 98 IU/L Total Protein 8.9 g/dl Albumin 4.7 g/dl Globulin 4.20 g/dl Albumin/Globulin Ratio 1.11 Salicylates Level < 1.0 mg/dl Acetaminophen Level < 10.0 ug/ml Ethyl Alcohol Level < 10.0 mg/dl Assessment and Plan Recommendation/Plan Discharge Disposition: Psychiatric inpatient Legal Status: Voluntary Assessment Additional comments: IDENTIFYING INFORMATION: 41 year old CM patient who is currently located at the hospital and for whom psychiatric consultation was requested. SOURCES OF INFORMATION: The patient who appears to be somewhat reliable and the medical records; the nursing staff. CHIEF COMPLAINT: "I tried to kill myself". HISTORY OF PRESENT ILLNESS: The patient was interviewed via telemedicine in the presence of and under the supervision of nursing staff of the hospital. The consent to conducting this interview via telemedicine was obtained by the nursing staff at the hospital. RADHA Mark reports that the patient presented with SI.. The patient reports having SI and attempted to kill himself by cutting himself and hitting himself with a pole. Reports that he does not feel safe. Admits to AH. . The patient denies using alcohol heavily or regularly. The patient reports using bath salts. The patient denies using any other substances. In terms of past psychiatric history, the patient reports having a history of past psychiatric hospitalizations. The patient reports having a history of past suicide attempts. PAST MEDICAL HISTORY: HepC CURRENT MEDICATIONS: wellbutrin, abilify, keppra. ALLERGIES TO MEDICATIONS: thorazine, haldol, zyprexa, seroquel, depakote, risperdal, remeron, geodon. LABORATORY TESTS: CBC with hemoglobin of 10.6, hematocrit 36.2, MCV of 70.3, MCH 20.6, CMP with AST of 61, UDS positive for amphetamines, alcohol not detected. SOCIAL HISTORY: homeless, on SSI, single, no kids. REVIEW OF SYSTEMS: Constitutional (e.g., fever, weight loss): negative; Eyes, Ears, Nose, Mouth, Throat: negative; Cardiovascular: negative; Respiratory: negative; Gastrointestinal: negative; Genitourinary: negative; Musculoskeletal: negative; Integumentary (skin and/or breast): negative; Neurological: negative; Psychiatric: as per HPI; Endocrine: negative; Hematologic/Lymphatic: negative; Allergic/Immunologic: negative. MENTAL STATUS EXAMINATION: General Appearance and Behavior: Calm, cooperative with the interview, pleasant with the current interviewer, makes fair eye contact, fairly groomed, no abnormal movements noted, Speech: Regular rate, regular rhythm, normal latency, normal volume, somewhat decreased amount, Flow of thought: illogical, tangential, Content of thought: + auditory hallucinations, no visual hallucinations, + delusions, positive for suicidal ideation; no homicidal ideation, Mood: "depressed", Affect: dysthymic, dysphoric, not reactive, Attention: normal based on the interview, Insight: fair, Judgment: poor, Memory: normal based on the interview, Sensorium: alert and oriented to person, place and date. ASSESSMENT: The patient's presentation and history are consistent with the diagnosis of unspecified psychotic disorder, stimulant use disorder. The patient presents with an exacerbation of psychosis in the context of medication noncompliance, psychosocial stressors and substance use. PLAN: - Medication management: Would start abilify 5 mg po bid. Would start diphenhydramine 50 mg IM PRN severe agitation q4 hours. Would start lorazepam 2 mg IM PRN severe agitation q4 hours Will defer to the inpatient psychiatry team for other medication changes. - Labs: No other laboratory tests are needed at this time. - Psychotherapy: Provided supportive psychotherapy and psychoeducation. - Disposition: Would recommend voluntary admission to the inpatient psychiatric unit as the patient would benefit from such an intervention so long as the patient has been cleared medically for admission to psychiatry. The patient is agreeable to being hospitalized in the inpatient psychiatric unit at this time. Would place on suicide precautions. Discussed about the above plan with Dr. Barragan. TANESHA MENDOSA MD Jun 22, 2018 07:33
[2018-06-22] MEDS ORDERED: LORAZEPAM 2 MG INJ IM STA (13:55)
[2018-06-22] MEDS: HALOPERIDOL 5 MG INJ IM STA ×2 (14:28→14:36)
[2018-06-22] MEDS ORDERED: LORAZEPAM 2 MG INJ IV ONE (22:00)
[2018-06-22] MEDS ORDERED: LORAZEPAM 2 MG INJ IM ONE (22:30)
[2018-06-23] MEDS ORDERED: DIPHENHYDRAMINE 50 MG INJ IM ONE ×2 (08:00→19:00)
[2018-06-23] MEDS ORDERED: ARIPIPRAZOLE 5 MG TAB PO STA (09:18)
--- NOTE | 2018-06-23 10:22 | PSY ---
Date/Time of Note Date/Time of Note DATE: 06/23/18 TIME: 10:16 Psychiatric Subjective Eval Consent Pt consented to telemedicine: Yes Subjective Evaluation Patient location: emergency Chief Complaint: states hearing voices and suicidal ideations History of present illness 41 yo male with hx schizophrenia and meth use presented to ED with active SI; pt was seen by telepsych, ipt psych was recommended. IN ED pt unwrapped his arm bandage and tried to choke himslf by wrapping it around his neck. Pt is on 5150. Pt now demands to be released, says he was upset because [place] He says he is not suicidal or homicidal and can return to his B&C; he says he "lied" abot Si because he was afraid of people following him. He says he "pretended" to strangle himself. Irritable, restless. Past psychiatric history multiple inpt; pt has superficial bilateral lacerations on his wrists, says he done it a week ago and was hospitalized Hospitalization: Suicidal Attempt(s) Family History denies Medical history Problems Medical Problems: (1) Acute psychosis Status: Acute (2) Auditory hallucinations Status: Acute (3) Deliberate self-cutting Status: Acute (4) Depression with suicidal ideation Status: Acute (5) Hypokalemia Status: Acute (6) Methamphetamine abuse Status: Acute (7) Methamphetamine abuse Status: Acute (8) Microcytic anemia Status: Acute (9) Patient left before treatment completed Status: Acute (10) Patient left before treatment completed Status: Acute (11) Patient left without being seen Status: Acute (12) Suicidal ideation Status: Acute (13) Suicidal ideation Status: Acute (14) Suicidal ideation Status: Acute (15) Suicidal ideation Status: Acute (16) Suicidal ideations Status: Acute (17) Suicide threat or attempt Status: Acute (18) Suicide threat or attempt Status: Acute (19) Thrombocytosis Status: Acute (20) Transaminitis Status: Acute Allergies: Coded Allergies: divalproex sodium (Verified Allergy, Intermediate, 08/05/17) olanzapine (Unverified Allergy, Intermediate, SOB, 07/28/16) quetiapine (Verified Allergy, Intermediate, 08/05/17) quetiapine fumarate (Verified Allergy, Mild, DIZZY, 08/05/17) Substance Abuse Substance abuse history: Yes Prior substance abuse treatmen: Yes Social History Marital status: single DPA/Conservatorship: No Psychiatric Objective Eval Mental Status Examination: Appearance: Disheveled Psychomotor Activity: Agitated Behavior: Cooperative Speech: Pressured AFFECT: Anxious Mood: Irritable Though Process: Perseverative Thought Content: Delusions Suicidal: No Homicidal: No On 72 hour hold: Yes Orientation: x4 Cognition: Alert Insight: Impared Judgement: Impared Laboratory Results Laboratory Tests Test 06/22/18 05:55 06/22/18 06:23 Urine Color JEANETTE Urine Clarity SLIGHTLY CLOUDY Urine pH 5.0 Urine Specific [place] 1.030 Urine Ketones TRACE mg/dL Urine Nitrite NEGATIVE mg/dL Urine Bilirubin NEGATIVE mg/dL Urine Urobilinogen NEGATIVE mg/dL Urine Leukocyte Esterase NEGATIVE Cecilia/ul Urine Microscopic RBC 1 /HPF Urine Microscopic WBC 0 /HPF Urine Calcium Oxalate Crystals MODERATE /HPF Urine Bacteria FEW /HPF Urine Mucus MODERATE /HPF Urine Hemoglobin 1+ mg/dL Urine Glucose NEGATIVE mg/dL Urine Total Protein NEGATIVE mg/dl Urine Opiates Screen Negative Urine Barbiturates Negative Urine Amphetamines Screen POSITIVE Urine Benzodiazepines Screen Negative Urine Cocaine Screen Negative Urine Cannabinoids Negative White Blood Count 6.5 10^3/ul Red Blood Count 5.15 10^6/ul Hemoglobin 10.6 g/dl Hematocrit 36.2 % Mean Corpuscular Volume 70.3 fl Mean Corpuscular Hemoglobin 20.6 pg Mean Corpuscular Hemoglobin Concent 29.3 g/dl Red Cell Distribution Width 20.5 % Platelet Count 383 10^3/UL Mean Platelet Volume 8.9 fl Immature Granulocytes % 0.200 % Neutrophils % 70.3 % Lymphocytes % 20.3 % Monocytes % 7.5 % Eosinophils % 1.4 % Basophils % 0.3 % Nucleated Red Blood Cells % 0.0 /100WBC Immature Granulocytes # 0.010 10^3/ul Neutrophils # 4.6 10^3/ul Lymphocytes # 1.3 10^3/ul Monocytes # 0.5 10^3/ul Eosinophils # 0.1 10^3/ul Basophils # 0.0 10^3/ul Nucleated Red Blood Cells # 0.0 10^3/ul Sodium Level 142 mmol/L Potassium Level 3.8 mmol/L Chloride Level 106 mmol/L Carbon Dioxide Level 24 mmol/L Anion Gap 12 Blood Urea Nitrogen 14 mg/dl Creatinine 0.71 mg/dl Est Glomerular Filtrat Rate mL/min > 60 mL/min Glucose Level 95 mg/dl Calcium Level 9.8 mg/dl Total Bilirubin 0.4 mg/dl Direct Bilirubin 0.00 mg/dl Indirect Bilirubin 0.4 mg/dl Aspartate Amino Transf (AST/SGOT) 61 IU/L Alanine Aminotransferase (ALT/SGPT) 68 IU/L Alkaline Phosphatase 98 IU/L Total Protein 8.9 g/dl Albumin 4.7 g/dl Globulin 4.20 g/dl Albumin/Globulin Ratio 1.11 Salicylates Level < 1.0 mg/dl Acetaminophen Level < 10.0 ug/ml Ethyl Alcohol Level < 10.0 mg/dl Assessment and Plan Assessment/Diagnosis Diagnosis PARANOID SCHIZOPHRENIA Recommendation/Plan Medication Management PT LISTS NUMEROUS ALLERGIES. PLEASE RESUME ABILIFY AT 20 MG POQD; FOR AGITATION CONSIDER SAPHRIS ODT 5 MG PO PRN Q 8 HRS WITH ATIVAN 2 MG AND BENADRYL 50 MG WHICH CAN BE GIVEN PO KS IM Q 6 HRS. Discharge Disposition: Psychiatric inpatient Legal Status: Continue involuntary hold Other TRANSFER TO IN PSYCH MANSOOR GOMES MD Jun 23, 2018 10:22
[2018-06-23] MEDS ORDERED: MIDAZOLAM 1 MG/ML 5 ML INJ IM ONE (11:00)
[2018-06-23] MEDS ORDERED: MIDAZOLAM 5 MG/ML 1ML INJ IM ONE (11:00)
[2018-06-23] MEDS ORDERED: MIDAZOLAM 1 MG/ML 5 ML INJ IV ONE (11:00)
[2018-06-23] MEDS ORDERED: LORAZEPAM 2 MG INJ IM ONE ×2 (17:30→19:00)
[2018-06-23] MEDS ORDERED: HALOPERIDOL 5 MG INJ IM ONE (19:00)
[2018-06-23] MEDS: ARIPIPRAZOLE 5 MG TAB PO SCH (21:00)
[2018-06-24] MEDS: ARIPIPRAZOLE 5 MG TAB PO SCH ×2 (08:30→21:00)
[2018-06-24] MEDS ORDERED: LORAZEPAM 2 MG INJ IM ONE (10:30)
[2018-06-24] MEDS ORDERED: HALOPERIDOL 5 MG INJ IM ONE (10:30)
--- NOTE | 2018-06-24 10:58 | CONS ---
Date/Time of Note Date/Time of Note DATE: 06/24/18 TIME: 10:54 Consult Date/Type/Reason Admit Date Type of Consult Psych Subjective Patient is a 41-year-old male demanding to be released, states he is not suicidal or homicidal and can return to his B&C. Patient is very agitated threatening and actually beat himself at the site of an old scar he has poor impulse control poor coping skills. Patient would benefit from inpatient hospitalization to reduce risk for self-harm. Objective Patient Appearance: Disheveled Voice Loudness: Severely Loud Mood and Affect Description: Angry, Uncooperative Mood or Affect: Uncooperative Speech Pattern: Clear Hallucination Type: Auditory Delusion Description: Present Assessment/Plan Recommendations Patient to remain on 5150 hold awaiting placement he would benefit from inpatient hospitalization to reduce risk for self-harm Continue Abilify 5 mg twice daily as ordered ALYSSA GRACE NP Jun 24, 2018 10:58
[2018-06-25] MEDS: ARIPIPRAZOLE 5 MG TAB PO SCH ×2 (09:18→21:51)
--- NOTE | 2018-06-25 12:37 | PSY ---
Date/Time of Note Date/Time of Note DATE: 06/25/18 TIME: 15:32 Psychiatric Subjective Eval Consent Pt consented to telemedicine: Yes Subjective Evaluation Patient location: emergency Chief Complaint: states hearing voices and suicidal ideations History of present illness 41 yo male with ho severe substance use. Seen on 06/[address] Sun per that note "1 yo male with hx schizophrenia and meth use presented to ED with active SI; pt was seen by telepsych, ipt psych was recommended. IN ED pt unwrapped his arm bandage and tried to choke himslf by wrapping it around his neck. Pt is on 5150. Pt now demands to be released, says he was upset because he was [place] possessions [place] He says he is not suicidal or homicidal and can return to his B&C; he says he "lied" abot Si because he was afraid of people following him. He says he "pretended" to strangle himself. Irritable, restless." This MD spoke with pt. He denies any suicide attempt or ideation. Denies any maryellen kayden to harm himself. Reports he wants to go home and is feeling well. Per notes, pt tried to kill himself in the ED and had active Si. Past Psych Hx: + ho psych admits and suicide attempts Meds: not taking Allergies: pt states he is allergic to nearly every psychiatric medication, says nearly entire list of psych meds MSE: disheveled, irritable, superficial, slurred speech, restricted affect, somewhat disorganized, denies delusions or avh or si/hi, impaired reliability/insight/judgment Imp:41 yo male states that he wants to go home but is acute risk of harm to self as he tried to kill himself in the ED, and his poor reliability/judgment/impulse control, as well as substance use, that he just tried to kill self all suggest there is not enough evidence to suggest he is not acute risk to self continue abilify 5150 psych admit For moderate agitation Zyprexa 5mg po prn For severe agitation chlorpromazine 25mg im prn 1:1 sitter arms length Hospitalization: Suicidal Attempt(s) Medical history Problems Medical Problems: (1) Acute psychosis Status: Acute (2) Auditory hallucinations Status: Acute (3) Deliberate self-cutting Status: Acute (4) Depression with suicidal ideation Status: Acute (5) Hypokalemia Status: Acute (6) Methamphetamine abuse Status: Acute (7) Methamphetamine abuse Status: Acute (8) Microcytic anemia Status: Acute (9) Patient left before treatment completed Status: Acute (10) Patient left before treatment completed Status: Acute (11) Patient left without being seen Status: Acute (12) Suicidal ideation Status: Acute (13) Suicidal ideation Status: Acute (14) Suicidal ideation Status: Acute (15) Suicidal ideation Status: Acute (16) Suicidal ideations Status: Acute (17) Suicide threat or attempt Status: Acute (18) Suicide threat or attempt Status: Acute (19) Thrombocytosis Status: Acute (20) Transaminitis Status: Acute Allergies: Coded Allergies: divalproex sodium (Verified Allergy, Intermediate, 08/05/17) olanzapine (Unverified Allergy, Intermediate, SOB, 07/28/16) quetiapine (Verified Allergy, Intermediate, 08/05/17) quetiapine fumarate (Verified Allergy, Mild, DIZZY, 08/05/17) Social History Marital status: single DPA/Conservatorship: No Assessment and Plan Recommendation/Plan Multiple antipsychotics: No Discharge Disposition: Psychiatric inpatient Legal Status: Place involuntary hold YOHAN MI Jun 25, 2018 12:37
[2018-06-26] MEDS ORDERED: DIPHENHYDRAMINE 50 MG CAP PO ONE (03:00)
--- NOTE | 2018-06-26 03:27 | EN ---
Date/Time of Note Date/Time of Note DATE: 06/26/18 TIME: 03:25 ER Progress Note Psychiatric Observation Note: Indication: Psychosis Duration: Greater than 12 hours Family history: As documented in original HPI The patient was observed with serial exams over the above timeframe. The patient continued to be well-appearing, and observation continued without complication. All other needs have been met during emergency department stay. Routine psychiatric medications ordered: Still pending psychiatric evaluation Hold status: Patient is still pending placement. He continued to be disorganized and agitated requiring sedation and only now is awake to have a conversation with the telemetry medicine psychiatrist. Placement status: Pending placement MAIKOL GOODE Jun 26, 2018 03:27
[2018-06-26] MEDS: ARIPIPRAZOLE 5 MG TAB PO SCH (09:12)
[2018-06-26] MEDS ORDERED: ACETAMINOPHEN 325 MG TAB PO ONE (10:00)
[2018-06-26 16:49] VITALS: BP 110/62; PULSE 69; RESP 16
--- NOTE | 2018-06-26 17:33 | PSY ---
Date/Time of Note Date/Time of Note DATE: 06/26/18 TIME: 15:40 Psychiatric Subjective Eval Subjective Evaluation Patient location: emergency Chief Complaint: states hearing voices and suicidal ideations Reason for consult: This is a 41 year old male who History of present illness 41 yo male with hx schizophrenia and meth use presented to ED with active SI on June 23, 2018. He was seen by telepsych, inpatient psychaitric care was recommended by psych was recommended. IN ED pt unwrapped his arm bandage and tried to choke himself by wrapping it around his neck. Pt is on 5150 and has demanded to be released, says he was upset because he was [place] possessions [place] He says he is not suicidal or homicidal and can return to his B&C; he says he "lied" about Si because he was afraid of people following him. He says he "pretended" to strangle himself. He has remained in the ED as his behavior has been irritable, restless and disorganized. On June 26, 2018 another psychiatric consult was requested. The nursing staff as well as treating ED MD has noted that his behavior has improved significantly. He has been calm and cooperative for over 24 hours. The patient is requesting to return to his board and care. He currently denies homicidal or suicidal ideation. He denies any hallucinations or delusions. He reports that he can be safely treated in the community. Past psychiatric history The patient's outpatient history is unclear. He reports having allergies to a variety of antipsychotic medications which do not appear to be genuine allergies. For example, he complained of shortness of breath, and other nonspecific somatic complaints. He has a history of suicide or episodes of self harm in the past. Hospitalization: Suicidal Attempt(s) Medical history Problems Medical Problems: (1) Acute psychosis Status: Acute (2) Auditory hallucinations Status: Acute (3) Deliberate self-cutting Status: Acute (4) Depression with suicidal ideation Status: Acute (5) Hypokalemia Status: Acute (6) Methamphetamine abuse Status: Acute (7) Methamphetamine abuse Status: Acute (8) Microcytic anemia Status: Acute (9) Patient left before treatment completed Status: Acute (10) Patient left before treatment completed Status: Acute (11) Patient left without being seen Status: Acute (12) Suicidal ideation Status: Acute (13) Suicidal ideation Status: Acute (14) Suicidal ideation Status: Acute (15) Suicidal ideation Status: Acute (16) Suicidal ideations Status: Acute (17) Suicide threat or attempt Status: Acute (18) Suicide threat or attempt Status: Acute (19) Thrombocytosis Status: Acute (20) Transaminitis Status: Acute Allergies: Coded Allergies: divalproex sodium (Verified Allergy, Intermediate, 08/05/17) olanzapine (Unverified Allergy, Intermediate, SOB, 07/28/16) quetiapine (Verified Allergy, Intermediate, 08/05/17) quetiapine fumarate (Verified Allergy, Mild, DIZZY, 08/05/17) Substance Abuse Substance abuse history: Yes Prior substance abuse treatmen: No Social History Marital status: single DPA/Conservatorship: No Occupation/Nursing Home: unemployed Psychiatric Objective Eval Review of Systems: Constitutional: Normal Eyes: Normal ENT: Normal Neck: Normal Respiratory: Normal Chest/Breast: Normal Cardiovascular: Normal GI: Normal Genitourinary: Normal Skin: Normal Lymphatic: Normal Musculoskeletal: Normal Neurological: Normal Physical Examination: Sleep: Adequate Appetite: Adequate Energy: Adequate Interest: Adequate Mental Status Examination: Appearance: Groomed Eye Contact: Good Psychomotor Activity: Normal Behavior: Cooperative Speech: Clear AFFECT: Appropriate Mood: Appropriate/Full Though Process: Linear Thought Content: Normal Suicidal: No Homicidal: No On 72 hour hold: No Orientation: x4 Cognition: Alert Insight: Intact Judgement: Intact Attention Span: Intact Assessment and Plan Assessment/Diagnosis Diagnosis F29.0 Psychosis NOS F15.20 Amphetamine use disorder. The patient behavior appears most likely secondary to his substance use disorder. He should be referred to outpatient treatment programs for his problems with substance use. Recommendation/Plan Medication Management Suggest that the patient be referred to a residential treatment program or a custodial associated with sober living. Since his symptoms have cleared when not exposed to methamphetamine suggest no medications at this time. Multiple antipsychotics: No Discharge Disposition: Community (Other) Legal Status: Release involuntary hold Other Suggest discharge to sober living or a custodial. ALMA HAQ MD Jun 26, 2018 17:28
== END 2018-06-26 18:01 | disposition home or self-care (01) ==
LOC: E/R 05:15
DX: R45.851 Suicidal ideations (principal); F17.210 Nicotine dependence, cigarettes, uncomplicated
CPT/HCPCS: 80053; 80307; 81001; 85025; J1200; J1630; J2060; 96372; J2250